=== PATIENT | female | born 2000 | race American Indian/Alaskan Native ===

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

== ENCOUNTER 2021-08-27 14:52 | Observation (INO) | payer MEDICAID ==
[2021-08-27] MEDS ORDERED: DOCUSATE SODIUM 100 MG CAP PO PRN (14:59)
[2021-08-27] MEDS ORDERED: ACETAMINOPHEN 325 MG TAB PO PRN (14:59)
[2021-08-27] MEDS ORDERED: SODIUM CHLORIDE 0.9% 500 ML 500 ML IV ONE (16:00)
--- NOTE | 2021-08-27 18:09 | History and Physical Report ---
History of Present Illness Date of examination: 08/27/21 Date of admission: 08/27/21 17:07 Chief complaint: They sent me to the hospital. History of present illness: 20yo @ 14.3 weeks admitted for blood transfusion for symptomatic anemia (in office H&H 6.6/24.8). Denies vaginal bleeding, abdominal pain, chest pain, heart palpitations and SOB, does endorse intermittent dizziness with position changes and headaches that are unrelieved by Tylenol as well as nausea. Voiding and ambulating without difficulty. Last bowel movement 1 day ago. Intact IV in right A/C at time of assessment. FHTs pending. EDC Confirmation: 02/22/2022 Gestational Age: 14 weeks Past History : 3 Term Births: 1 Premature Births: 0 Living Children: 1 Para: 1 Mult. Births: 0 Prev : 0 Prev. attempt? 0 Aborta: 1 Elect. Ab: 0 Spont. Ab: 1 Ectopics: 0 # 1 Delivery date: 12/21/2016 Weeks Gestation: 39 Delivery type: Vaginal Anesthesia type: epidural Delivery location: [facility] Sex: female weight: 6.88 Comments: teen # 2 Delivery date: 2016 Weeks Gestation: ? Delivery type: SAB Past Medical History: Reviewed and updated today: Anemia Past Surgical History: Reviewed and updated today: negative Family History Summary: Reviewed history and no changes required: 07/15/2021 General Comments - FH: HTN Social History: Reviewed history from 09/14/2016 and no changes required: no e/t/d single Risk Factors: Smoked Tobacco Use: Never smoker Smokeless Tobacco Use: Never Counseled to Quit/Cut Down: yes Passive Smoke Exposure: no HIV High Risk Behavior: no Caffeine Use: 2 drinks per day Exercise: no Seatbelt Use: preg-sexual assault counselor % No Dietary Counseling Reason: pn yes Alcohol Use: yes Type: occ Drug Use: no Past Medical History Anesthesia Complications: negative Anemia: negative Autoimmune Disorder: negative Bleeding Disorder: negative Blood Transfusions: negative Breast Disease: negative Diabetes: negative Heart Disease: negative Hypertension: negative Hepatitis/Liver Disease: negative Kidney Disease/UTI: negative Neurologic/Epilepsy/Migraines: negative Phlebitis/Varicosities: negative Psychiatric: negative Pulmonary Disease/Asthma: negative Thyroid Disease: negative Hospitalizations: negative Surgery (Non-director of in service education): negative Abnormal PAP: negative LAWRENCE Exposure: negative Infertility: negative Uterine Anomaly: negative Uterine Surgery (not C/S): negative Other Gynecologic Problems: negative Social Hx: no e/t/d single Infection History Hx of STD: chlamydia HIV Risk Eval: no Hepatitis B Risk Eval: low risk Personal hx. of genital herpes: no Rash, Viral, or Febrile illness since last LMP? no Varicella/Chicken Pox Status: Unknown TB Risk: no Genetic History Congenital Heart Defect: Mom: no Dad: no Yrder Disease: Mom: no Dad: no Thalassemia Mom: no Dad: no Neural Tube Defect Mom: no Dad: no Down's Syndrome Mom: no Dad: no Nelson-Sachs Mom: no Dad: no Sickle Cell Disease/Trait Mom: no Dad: no Hemophilia Mom: no Dad: no Muscular Dystrophy Mom: no Dad: no Cystic Fibrosis Mom: no Dad: no [place] Chorea Mom: no Dad: no Mental Retardation Mom: no Dad: no Fragile X Mom: no Dad: no Other Genetic/Chromosomal Disorder Mom: no Dad: no Child w/other defect Mom: no Dad: no Enviromental Exposures Enviromental Exposures Reviewed Xray Exposure: no Medication, drug, or alcohol use since LMP: no Chemical/Other Exposure: no Exposure to Cat Liter: no Hx of Parvovirus (Fifth Disease): no Occupational Exposure to Children: none Comments: unempolyed Current Allergies (reviewed today): No known allergies Past History Past Medical History: hematologic disorders (anemia) Past Surgical History: no surgical history Social history: single - Obstetrical History Expected Date of Delivery: 02/22/22 Actual Gestation: 14 Week(s) 3 Day(s) : 3 Para: 1 Hx # Term Pregnancies: 1 Number of Pregnancies: 0 Spontaneous Abortions: 1 Induced : 0 Number of Living Children: 1 Medications and Allergies Allergies Allergy/AdvReac Type Severity Reaction Status Date / Time No Known Allergies Allergy Unverified 12/20/16 19:21 Home Medications Medication Instructions Recorded Confirmed Last Taken Type Ibuprofen [Motrin 800 MG tab] 800 mg PO TID PRN #30 tablet 12/22/16 Unknown Rx Active Meds: Active Medications Acetaminophen (Acetaminophen 325 Mg Tab) 650 mg PO Q4H PRN PRN Reason: Pain MILD(1-3)/Fever >100.5/GARZA Docusate Sodium (Docusate Sodium 100 Mg Cap) 100 mg PO Q12H PRN PRN Reason: Constipation Multivitamins/Iron/Calcium ( [id number] Fumarate-Folic Acid Vit Tab) 1 each PO QDAY VA Review of Systems Constitutional: fatigue, weakness, lethargy, chronic headaches Eyes: normal appearance Ears, nose, mouth and throat: headache, other (dry tongue) Cardiovascular: lightheadedness, dyspnea on exertion Breasts: deferred Gastrointestinal: nausea Genitourinary: deferred Integumentary: dryness - Physical Exam Breasts: Positive: deferred Cardiovascular: Regular rate, Normal S1, Normal S2 Lungs: Positive: Clear to auscultation, Normal air movement Abdomen: Positive: normal appearance, soft, normal bowel sounds Uterus: Positive: normal size Extremities: Positive: normal Results All other labs normal. HBsAg Screen Negative Negative *1 RPR Non Reactive Non Reactive *2 Rubella Antibodies, IgG 5.45 index Immune >0.99 *3 Non-immune <0.90 Equivocal 0.90 - 0.99 Immune >0.99 ABO Grouping A *4 Rh Factor Positive *5 Please note: Prior records for this patient's ABO / Rh type are not available for additional verification. Antibody Screen Negative Negative *6 WBC 7.5 x10E3/uL 3.4-10.8 *7 RBC 4.28 x10E6/uL 3.77-5.28 *8 Microcytes present. Hypochromasia present. Elliptocytes present. [place] cells present. Anisocytosis present. Acanthocytes present. Hemoglobin [LL] 6.6 g/dL 11.1-15.9 *9 Hematocrit [L] 24.8 % 34.0-46.6 *10 MCV [L] 58 fL 79-97 *11 MCH [L] 15.4 pg 26.6-33.0 *12 MCHC [L] 26.6 g/dL 31.5-35.7 *13 RDW [H] 22.0 % 11.7-15.4 *14 Platelets [H] 631 x10E3/uL 150-450 *15 Neutrophils 70 % Not Estab. *16 Lymphs 22 % Not Estab. *17 Monocytes 5 % Not Estab. *18 Eos 2 % Not Estab. *19 Basos 1 % Not Estab. *20 ! Immature Cells <No Reported Value> *21 Neutrophils (Absolute) 5.2 x10E3/uL 1.4-7.0 *22 Lymphs (Absolute) 1.6 x10E3/uL 0.7-3.1 *23 Monocytes(Absolute) 0.4 x10E3/uL 0.1-0.9 *24 Eos (Absolute) 0.2 x10E3/uL 0.0-0.4 *25 Baso (Absolute) 0.1 x10E3/uL 0.0-0.2 *26 ! Immature Granulocytes 0 % Not Estab. *27 ! Immature Grans (Abs) 0.0 x10E3/uL 0.0-0.1 *28 ! NRBC <No Reported Value> *29 Hematology Comments: Note: *30 Verified by microscopic examination. Tests: (4) HB Solu + Rflx Frac ([id number]) Hemoglobin (Hgb) Solubility Negative Negative *44 Tests: (5) HIV Ab/p24 Ag with Reflex ([id number]) HIV Ab/p24 Ag Screen Non Reactive Non Reactive *45 HIV Negative HIV-1/HIV-2 antibodies and HIV-1 p24 antigen were NOT detected. There is no laboratory evidence of HIV infection. Tests: (6) Varicella-Zoster V Ab, IgG ([id number]) ! Varicella Zoster IgG 1102 index Immune >165 *46 Negative <135 Equivocal 135 - 165 Positive >165 A positive result generally indicates exposure to the pathogen or administration of specific immunoglobulins, but it is not indication of active infection or stage of disease. Tests: (7) HCV Antibody reflex to JOHAN ([id number]) HCV Ab <0.1 s/co ratio 0.0-0.9 *47 Tests: (8) Interpretation: ([id number]) ! Interpretation: SPRCS *48 Negative Not infected with HCV, unless recent infection is suspected or other evidence exists to indicate HCV infection. Effective September 28, 2021 HCV Antibody reflex to JOHAN will be made non-orderable. This will affect any Custom Profile that includes [id number] HCV Antibody reflex to JOHAN. [employer] offers order code 372011 HCV Antibody RFX to Quant PCR as an alternative. Assessment and Plan A: 20yo @ 14.3 weeks symptomatic anemia P: Transfuse RBC now, reassess H&H post transfusion and evaluate for need for ad ditional RBCs Monitor VS FHTs q shift Regular diet Encourage ambulation - Patient Problems (1) with 14 completed weeks gestation Current Visit: Yes Status: Acute (2) Anemia affecting Current Visit: Yes Status: Acute
[2021-08-27] MEDS ORDERED: ONDANSETRON 4 MG/2 ML INJ IV PRN (19:00)
[2021-08-27] MEDS ORDERED: SODIUM CHLORIDE 0.9% 500 ML 500 ML IV SCH (20:00)
[2021-08-27 20:24] LABS: Mean Corpuscular HGB Conc 28 % (30-34); Platelet Count 570 K/mm3 (140-440)
[2021-08-27 20:25] LABS: Hematocrit 25.2 % (30.3-42.9); Hemoglobin 7.1 gm/dl (10.1-14.3); Mean Corpuscular Volume 53 fl (79-97)
[2021-08-27 20:26] LABS: Red Cell Distribution Width 21.7 % (13.2-15.2)
[2021-08-27 23:31] LABS: Total Cells Counted 100
[2021-08-27 23:32] LABS: Anisocytosis 1+; Hypochromasia 3+; Poikilocytosis 1+
[2021-08-27 23:33] LABS: Platelet Estimate Consistent w Auto; Tear Drop Cells Few
[2021-08-28 05:40] LABS: Hematocrit 27.6 % (30.3-42.9); Hemoglobin 8.5 gm/dl (10.1-14.3)
--- NOTE | 2021-08-28 08:13 | Discharge Summary ---
Providers - Providers Date of Admission: 08/27/21 17:07 Date of discharge: 08/28/21 Attending physician: CHELA MENDIOLA MD Primary care physician: SALES FINANCIAL ANALYST Hospitalization Reason for admission: other (symptomatic anemia requiring blood transfusion) Delivery: other (n/a - 14.4 weeks at discharge) Procedure: other (blood tranfusion) Episiotomy: none Laceration: none Incision: other (n/a) Other procedures: other (n/a) complications: other (n/a) Discharge diagnosis: other Pertinent studies: Upon entering room, pt resting in bed. Partner at bedside sleeping. Denies vaginal bleeding, abdominal pain, LOF, chest pain, SOB, headaches, dizziness, and NVD. FHTs 160 via bedside doppler. VSS. Continues to ambulate and void without difficulty. Received 1 unit pRBC overnight, H&H with appropriate increase. Reports adequate rest overnight. Requesting IV be removed. Ready to be discharged home. Condition at discharge: Good Disposition: 01 HOME / SELF CARE / HOMELESS - Discharge Diagnoses (1) with 14 completed weeks gestation Status: Acute (2) Anemia affecting Status: Acute Plan - Discharge Medications Prescriptions: Docusate Sodium [Colace] 100 mg PO BID PRN #60 capsule PRN Reason: Constipation Ferrous Sulfate [Feosol 325 MG tab] 325 mg PO BID #60 tablet - Provider Discharge Summary Diet: other (high iron) Instructions: routine Additional instructions: [] Smoking cessation referral if applicable(refer to patient education folder for contact #) [] Refer to [facility]'s [facility] Booklet Call your doctor immediately for: * Fever > 100.5 * Heavy vaginal bleeding ( >1 pad per hour) * Severe persistent headache * Shortness of breath * Reddened, hot, painful area to leg or breast * Drainage or odor from incision. * Keep incision clean and dry at all times and follow doctor's instructions regarding bathing/showering - Follow up plan Follow up: JOVI DUKE MD [Primary Care Provider] - 7 Days CHELA MENDIOLA MD [Staff Physician] - 09/18/21 (Thank you for allowing us to take care of you. Please return to the office for your schedule appointment. We will call you to schedule an appointment with outpatient hematology regarding your anemia. Please take iron two times every day. Take the iron pills with orange juice if possible, and avoid taking the iron with milk, yogurt or other dairy products. Should you have any questions or concerns after discharge from the hospital, please call the My OBGYN office at [phone].)
[2021-08-28] MEDS ORDERED: PRENATAL VIT27-FE FUMARATE-FOLIC ACID VIT TAB PO SCH (10:00)
[2021-08-28 10:43] VITALS: BP 92/60
== END 2021-08-28 10:15 | disposition home or self-care (01) ==
LOC: UNDOADMOB 14:52 → 3A 14:52 → OB 17:07
PROVIDERS: ADMIT Student in an Organized Health Care Education/Training Program; ATTEND Student in an Organized Health Care Education/Training Program
DX: O99.012 Anemia complicating pregnancy, second trimester (principal); D64.9 Anemia, unspecified; Z3A.14 14 weeks gestation of pregnancy
CPT/HCPCS: 36415; 36430; 85014; 85018; 85025; 86850; 86900; 86901; 86920; 96360; 96361; G0378; G0379; J7040; P9016; 85007

== ENCOUNTER 2022-01-05 11:04 | Outpatient (CLI) | payer MEDICAID ==
[2022-01-05 11:43] VITALS: BP 102/56
[2022-01-05 12:14] LABS: Bacteria,Urine 1+ /HPF (Negative); Mucus,Urine 3+ /HPF
[2022-01-05] MEDS ORDERED: LACTATED RINGERS 500 ML IV NR (12:30)
[2022-01-05 12:35] LABS: Bilirubin,Urine Negative (Negative); Blood,Urine Negative (Negative); Color,Urine Amber (Yellow)
== END 2022-01-05 13:10 | disposition home or self-care (01) ==
LOC: TRG 11:04 → APU 11:05 → TRG 13:10
PROVIDERS: ATTEND Obstetrics & Gynecology
DX: O26.893 Other specified pregnancy related conditions, third trimester (principal); R10.9 Unspecified abdominal pain; M54.50 Low back pain, unspecified; R10.2 Pelvic and perineal pain; Z3A.33 33 weeks gestation of pregnancy
CPT/HCPCS: 59025; 81001; 87086

== ENCOUNTER 2022-02-10 16:25 | Outpatient (CLI) | payer MEDICAID ==
[2022-02-10 16:56] VITALS: BP 103/55
[2022-02-10 18:11] LABS: Color,Urine Yellow (Yellow)
[2022-02-10 18:17] LABS: Bacteria,Urine 2+ /HPF (Negative); Calcium Oxalate Crystals,Urine 1+; Mucus,Urine 3+ /HPF
== END 2022-02-10 18:37 | disposition home or self-care (01) ==
LOC: TRG 16:25 → APU 16:29 → TRG 18:37
PROVIDERS: ATTEND Obstetrics & Gynecology
DX: O26.893 Other specified pregnancy related conditions, third trimester (principal); R10.2 Pelvic and perineal pain; M54.50 Low back pain, unspecified; Z3A.38 38 weeks gestation of pregnancy
CPT/HCPCS: 36415; 59025; 81001; 84112

== ENCOUNTER 2022-02-11 11:30 | Outpatient (CLI) | payer MEDICAID ==
[2022-02-11 11:51] VITALS: BP 113/55
== END 2022-02-11 16:15 | disposition home or self-care (01) ==
LOC: TRG 11:30 → APU 11:31 → TRG 16:15
PROVIDERS: ATTEND Obstetrics & Gynecology
DX: O46.93 Antepartum hemorrhage, unspecified, third trimester (principal); Z3A.38 38 weeks gestation of pregnancy
CPT/HCPCS: 59025; Q0177

== ENCOUNTER 2022-02-12 10:56 | Inpatient (IN) | payer MEDICAID ==
--- NOTE | 2022-02-12 11:32 | History and Physical Report ---
History of Present Illness Date of examination: 02/12/22 Chief complaint: contractions and vaginal bleeding @ 38+ weeks History of present illness: EDC Confirmation: 02/22/2022 Past History : 3 Term Births: 1 Premature Births: 0 Living Children: 1 Para: 1 Mult. Births: 0 Prev : 0 Prev. attempt? 0 Aborta: 1 Elect. Ab: 0 Spont. Ab: 1 Ectopics: 0 # 1 Delivery date: 12/21/2016 Weeks Gestation: 39 Delivery type: Vaginal Anesthesia type: epidural Delivery location: [facility] Sex: female weight: 6.88 Comments: teen # 2 Delivery date: 2016 Weeks Gestation: ? Delivery type: SAB Past Medical History: Reviewed and updated today: Anemia Past Surgical History: Reviewed and updated today: negative Family History Summary: Reviewed history and no changes required: 07/15/2021 General Comments - FH: HTN Social History: Reviewed history from 09/14/2016 and no changes required: no e/t/d single Risk Factors: Smoked Tobacco Use: Never smoker Smokeless Tobacco Use: Never Counseled to Quit/Cut Down: yes Passive Smoke Exposure: no HIV High Risk Behavior: no Caffeine Use: 2 drinks per day Exercise: no Seatbelt Use: preg-vocational counselor % No Dietary Counseling Reason: pn yes Alcohol Use: yes Type: occ Drug Use: no Past Medical History Anesthesia Complications: negative Anemia: negative Autoimmune Disorder: negative Bleeding Disorder: negative Blood Transfusions: negative Breast Disease: negative Diabetes: negative Heart Disease: negative Hypertension: negative Hepatitis/Liver Disease: negative Kidney Disease/UTI: negative Neurologic/Epilepsy/Migraines: negative Phlebitis/Varicosities: negative Psychiatric: negative Pulmonary Disease/Asthma: negative Thyroid Disease: negative Hospitalizations: negative Surgery (Non-factory worker): negative Abnormal PAP: negative LAWRENCE Exposure: negative Infertility: negative Uterine Anomaly: negative Uterine Surgery (not C/S): negative Other Gynecologic Problems: negative Social Hx: no e/t/d single Infection History Hx of STD: chlamydia HIV Risk Eval: no Hepatitis B Risk Eval: low risk Personal hx. of genital herpes: no Rash, Viral, or Febrile illness since last LMP? no Varicella/Chicken Pox Status: Unknown TB Risk: no Genetic History Congenital Heart Defect: Mom: no Dad: no Ryder Disease: Mom: no Dad: no Thalassemia Mom: no Dad: no Neural Tube Defect Mom: no Dad: no Down's Syndrome Mom: no Dad: no Nelson-Sachs Mom: no Dad: no Sickle Cell Disease/Trait Mom: no Dad: no Hemophilia Mom: no Dad: no Muscular Dystrophy Mom: no Dad: no Cystic Fibrosis Mom: no Dad: no [place] Chorea Mom: no Dad: no Mental Retardation Mom: no Dad: no Fragile X Mom: no Dad: no Other Genetic/Chromosomal Disorder Mom: no Dad: no Child w/other defect Mom: no Dad: no Enviromental Exposures Enviromental Exposures Reviewed Xray Exposure: no Medication, drug, or alcohol use since LMP: no Chemical/Other Exposure: no Exposure to Cat Liter: no Hx of Parvovirus (Fifth Disease): no Occupational Exposure to Children: none Comments: unempolyed Current Allergies (reviewed today): No known allergies Past History Past Medical History: other (see HPI) Past Surgical History: other (see HPI) MINER PICK History: other (see HPI) Family/Genetic History: other (see HPI) - Obstetrical History Expected Date of Delivery: 02/22/22 Actual Gestation: 38 Week(s) 4 Day(s) : 3 Para: 1 Hx # Term Pregnancies: 1 Number of Pregnancies: 0 Spontaneous Abortions: 1 Induced : 0 Number of Living Children: 1 Medications and Allergies Allergies Allergy/AdvReac Type Severity Reaction Status Date / Time No Known Allergies Allergy Verified 02/10/22 16:35 Home Medications Medication Instructions Recorded Confirmed Last Taken Type Ibuprofen [Motrin 800 MG tab] 800 mg PO TID PRN #30 tablet 12/22/16 08/27/21 Unk nown Rx Docusate Sodium [Colace] 100 mg PO BID PRN #60 capsule 08/28/21 Unknown Rx Ferrous Sulfate [Feosol 325 MG tab] 325 mg PO BID #60 tablet 08/28/21 Unknown Rx Review of Systems All systems: negative - Physical Exam Breasts: Positive: normal Cardiovascular: Regular rate Lungs: Positive: Normal air movement Abdomen: Positive: normal appearance, soft Genitourinary (Female): Positive: normal external genitalia, normal perenium Vulva: both: normal Vagina: Positive: normal moisture Uterus: Positive: normal size, normal contour Anus/Rectum: Positive: normal perianal skin Extremities: Positive: normal Deep Tendon Reflex Grade: Normal +2 - Obstetrical FHR: auscultation normal Uterine Contraction Monitor Mode: External Cervical Dilatation: 3 (moderate amount of dark red blood noted) Cervical Effacement Percentage: 70 station: -1 Uterine Contraction Pattern: Regular Uterine Tone Measurement Phase: Contraction Uterine Contraction Intensity: Moderate Results Result Diagrams: 02/12/22 11:35 All other labs normal. Assessment and Plan pt presented to office @ 38+4 week with c/o vaginal bleeding x 3 days and contractions q3-5minutes. Vaginal bleeding noted on peripad and during vag exam dark red. It does not appear that patient is SROM'd. Abd palpated soft between ctx, pt reports + FM. Suspect labor and rapid cervical change is cause of vaginal bleeding but will monitor carefully for s/s abruption. - Patient Problems (1) Trichomonal vaginitis Current Visit: Yes Status: Acute Plan to address problem: tx'd @ 35weeks SUJATA collected today (2) Vaginal bleeding in Current Visit: Yes Status: Acute Plan to address problem: will get u/s to r/o abruption (3) 38 weeks gestation of Current Visit: Yes Status: Acute (4) Anemia affecting Current Visit: Yes Status: Acute Qualifiers: Trimester: third trimester Qualified Code(s): O99.013 - Anemia complicating , third trimester (5) Group B Streptococcus carrier state affecting Current Visit: Yes Status: Acute Plan to address problem: Amp q4hrs until delivery
[2022-02-12] MEDS ORDERED: LACTATED RINGERS 1,000 ML IV SCH (12:00)
[2022-02-12] MEDS ORDERED: ONDANSETRON 4 MG/2 ML INJ IV PRN ×2 (12:00→20:36)
[2022-02-12] MEDS ORDERED: LIDOCAINE (2%) 20 MG/1 ML VIAL 20 ML MDV INFILTRATI NR (12:00)
[2022-02-12] MEDS ORDERED: ePHEDrine SULFATE 50 MG/1 ML INJ IV PRN ×2 (12:00→15:00)
[2022-02-12] MEDS ORDERED: fentaNYL 100 MCG/2 ML INJ IV PRN (12:00)
[2022-02-12] MEDS ORDERED: LOPERAMIDE 2 MG CAP PO NR (12:00)
[2022-02-12] MEDS ORDERED: TERBUTALINE 1 MG/1 ML INJ SUB-Q NR (12:00)
[2022-02-12] MEDS ORDERED: ACETAMINOPHEN 325 MG TAB PO PRN ×2 (12:00→20:36)
[2022-02-12] MEDS ORDERED: AMPICILLIN/NS 2 GM/100 ML 2 GM/100 ML BAG IV NR (12:00)
[2022-02-12] MEDS ORDERED: OXYTOCIN 10 UNIT/1 ML INJ IM NR (12:00)
[2022-02-12] MEDS ORDERED: CARBOPROST TROMETHAMINE 250 MCG/1 ML INJ IM NR (12:00)
[2022-02-12] MEDS ORDERED: OXYTOCIN DRIP 30 UNITS/500 ML BAG IV SCH ×2 (12:00)
[2022-02-12] MEDS ORDERED: METHYLERGONOVINE MALEATE 0.2 MG/ML VIAL IM NR (12:00)
[2022-02-12] MEDS ORDERED: BUTORPHANOL 2 MG/1 ML INJ IV PRN (12:00)
[2022-02-12] MEDS ORDERED: miSOPROStol 200 MCG TAB PR NR (12:00)
[2022-02-12] MEDS ORDERED: PROMETHAZINE 25 MG TAB PO PRN ×2 (12:00→20:36)
--- NOTE | 2022-02-12 13:25 | Event Note ---
Date: 02/12/22 SVE now /-1, normal bloody show present. FHT CAT 1, abdomen palpated soft between ctx, moderate with ctx. no abdominal tenderness noted during palpation between ctx. IVF bolus in progress for epidural.
[2022-02-12 13:27] LABS: Hematocrit 29.8 % (30.3-42.9); Hemoglobin 9.2 gm/dl (10.1-14.3); Mean Corpuscular HGB Conc 31 % (30-34); Mean Corpuscular Volume 60 fl (79-97); Red Blood Count 5.01 M/mm3 (3.65-5.03)
[2022-02-12 13:28] LABS: Platelet Count 429 K/mm3 (140-440); Red Cell Distribution Width 20.8 % (13.2-15.2)
--- NOTE | 2022-02-12 14:33 | Anesthesia Consultation ---
Anesthesia Consult and Med Hx Date of service: 02/12/22 - Airway Anesthetic Teeth Evaluation: Good ROM Head & Neck: Adequate Mental/Hyoid Distance: Adequate Mallampati Class: Class II Intubation Access Assessment: Probably Good - Pulmonary Exam CTA: Yes - Cardiac Exam Cardiac Exam: RRR - Pre-Operative Health Status ASA Pre-Surgery Classification: ASA2 Proposed Anesthetic Plan: Epidural - Pulmonary Hx Smoking: No Hx Asthma: Yes Hx Respiratory Symptoms: No SOB: No COPD: No Home Oxygen Therapy: No Hx Pneumonia: No Hx Sleep Apnea: No - Cardiovascular System Hx Hypertension: No Hx Coronary Artery Disease: No Hx Heart Attack/AMI: No Hx Angina: No Hx Percutaneous Transluminal Coronary Angioplasty (PTCA): No Hx Cardia Arrhythmia: No Hx Pacemaker: No Hx Internal Defibrillator: No Hx Valvular Heart Disease: No Hx Heart Murmur: No Hx Peripheral Vascular Disease: No - Central Nervous System Hx Neuromuscular Disorder: No Hx Seizures: No CVA: No Hx Back Pain: No Hx Psychiatric Problems: No - Gastrointestinal Hx Ulcer: No Hx Gastroesophageal Reflux Disease: No - Endocrine Hx Renal Disease: No Hx End Stage Renal Disease: No Hx Cirrhosis: No Hx Liver Disease: No Hx Insulin Dependent Diabetes: No Hx Non-Insulin Dependent Diabetes: No Hx Thyroid Disease: No Hx Hypothyroidism: No Hx Hyperthyroidism: No - Hematic Hx Anemia: No Hx Sickle Cell Disease: No - Other Systems Hx Alcohol Use: No Hx Substance Use: No Hx Cancer: No Hx Obesity: No
--- NOTE | 2022-02-12 14:34 | Progress Note ---
Labor Epidural - Labor Epidural Start Time: 14:12 Stop Time: 14:16 Performed by:: AMADA CANNON Procedure: Epidural Requested for Labor Pain. H&P and PT Chart reviewed and consent obtained. Time out performed and the procedure was explained, all questions answered. Patient was placed in a sitting position with monitors applied. The PTs back was prepped and draped in usual sterile fashion. The Skin was localized with 3 mL of 1% lidocaine at L3-L4. A 17-gauge Touhy epidural needle was advanced to KETTY with saline at 7 cm and no blood/CSF was noted via epidural needle. Epidural catheter was advanced to 12 cm. There was negative aspiration for blood and CSF in the catheter and negative response to a test dose of 3 ml 1.5% lidocaine w/ Epi and a sterile dressing was applied Patient tolerated the procedure well and there were no immediate complications noted.
--- NOTE | 2022-02-12 14:34 | Anesthesia Day of Surgery ---
Anesthesia Day of Surgery - Day of Surgery Patient Examined: Yes Patient H&P Reviewed: Yes Patient is NPO: Yes Beta Blockers: No Cardiac Clearance: No Pulmonary Clearance: No Santosh's Test: N/A
[2022-02-12] MEDS ORDERED: NALOXONE 0.4 MG/1 ML INJ IV PRN (15:00)
[2022-02-12] MEDS ORDERED: fentaNYL-BUPIV 2 MCG/ML-0.125% 200 MCG/100 ML BAG EPIDURAL SCH (15:00)
--- NOTE | 2022-02-12 15:13 | Procedure Note ---
OB Delivery Note - Delivery Date of Delivery: 02/12/22 Vest Presser: DINA JAMES Estimated blood loss: 300cc - Vaginal Delivery presentation: vertex Delivery position: OA Intrapartum events: meconium, bleeding site-undetermine Delivery induction: none Delivery monitor: external FHT, external uterine Route of delivery: Delivery placenta: spontaneous Delivery cord: 3 umbilical vessels Episiotomy: none Delivery laceration: none Anesthesia: epidural Delivery comments: Male infant born encaul, mec fluid noted. Approx 200 ml of blood when baby de livered, placenta delivered quickly after baby, clots noted on 1/3 of edge of placenta. Placenta to pathology d/t suspected abruption. Baby crying and vigorus, placed skin to skin on mother's abdomen. 3 vessel cord clamped and cut. no lacerations to repair. all counts correct. approx 100ml of blood after delivery of placenta. Mother and infant LDR stable. - A at 1 minute: 8 at 5 minutes: 9 Gender: Male (5#12oz)
[2022-02-12] MEDS ORDERED: AMPICILLIN/NS 1 GM/50 ML 1 GM/50 ML BAG IV SCH (16:00)
--- NOTE | 2022-02-12 17:41 | Post Anesthesia Evaluation ---
- Post Anesthesia Evaluation Patient Participated: Yes Airway Patent: Yes Stable Respiratory Function: Yes Nausea/Vomiting: No Temp > 96.8F: Yes Pain Manageable: Yes Adequeate Hydration: Yes Anesthesia Complications: No Block Receding Appropriately: Yes Patient on Ventilator: No
[2022-02-12] MEDS ORDERED: LANOLIN/ZINC/DIMETHICONE (LANSINOH) 7 GM TP PRN (20:36)
[2022-02-12] MEDS ORDERED: WITCH HAZEL/ GLYCERIN PAD TP PRN (20:36)
[2022-02-12] MEDS ORDERED: MAGNESIUM HYDROXIDE (MOM) ORAL LIQD UDC PO PRN (20:36)
[2022-02-12] MEDS ORDERED: BENZOCAINE/MENTHOL 20/0.5% TOP SPRAY 56 GM TP PRN (20:36)
[2022-02-12] MEDS ORDERED: diphenhydrAMINE 25 MG CAP PO PRN (20:36)
[2022-02-12] MEDS: FERROUS SULFATE 325 MG TAB PO SCH (20:45)
[2022-02-12] MEDS: IBUPROFEN 800 MG TAB PO SCH (21:13)
[2022-02-12] MEDS: DOCUSATE SODIUM 100 MG CAP PO SCH (21:13)
[2022-02-12] MEDS ORDERED: MINERAL OIL 30 ML ORAL LIQD PO PRN (22:00)
[2022-02-13 03:47] LABS: Hematocrit 22.8 % (30.3-42.9); Hemoglobin 6.9 gm/dl (10.1-14.3)
[2022-02-13] MEDS: IBUPROFEN 800 MG TAB PO SCH ×3 (05:15→16:52)
[2022-02-13] MEDS: DOCUSATE SODIUM 100 MG CAP PO SCH ×2 (09:34→22:59)
[2022-02-13] MEDS: FERROUS SULFATE 325 MG TAB PO SCH ×2 (09:35→22:59)
[2022-02-13] MEDS ORDERED: PRENATAL VIT27-FE FUMARATE-FOLIC ACID VIT TAB PO SCH (10:00)
[2022-02-14] MEDS: IBUPROFEN 800 MG TAB PO SCH ×2 (01:05→05:55)
[2022-02-14 08:22] LABS: Hematocrit 24.9 % (30.3-42.9); Hemoglobin 7.7 gm/dl (10.1-14.3)
--- NOTE | 2022-02-14 08:43 | Discharge Summary ---
Providers - Providers Date of Admission: 02/12/22 11:26 Date of discharge: 02/14/22 Attending physician: CHETAN IVERSON 02/12/22 20:36 Consult to District Plant Engineer [CONS] Routine Reason For Exam: assistance with , SNS Primary care physician: CHETAN IVERSON Hospitalization Reason for admission: active labor Delivery: Episiotomy: none Laceration: none complications: none Discharge diagnosis: IUP at term delivered [place] baby: male Hospital course: Breasts: Present: normal. Absent: swelling, mass, pain, engorged Cardiovascular: Present: Regular rate Lungs: Present: Normal air movement Abdomen: Present: normal appearance, soft. Absent: distention, tenderness, guarding Uterus: Present: fundal height below umbilicus. Absent: tenderness Extremities: Present: normal. Absent: tenderness Condition at discharge: Good Disposition: 01 HOME / SELF CARE / HOMELESS - Discharge Diagnoses (1) Anemia affecting Status: Acute Qualifiers: Trimester: third trimester Qualified Code(s): O99.013 - Anemia complicating , third trimester Comment: stable (2) Single live Status: Acute (3) Spontaneous vaginal delivery Status: Acute Comment: rto 4 weeks for care Plan - Discharge Medications Prescriptions: Docusate Sodium [Colace CAP] 100 mg PO BID PRN #30 capsule PRN Reason: Constipation Lidocain2.5%/Prilocai2.5% [Emla] 5 gm TP ONCE #1 tube Ferrous Sulfate [Feosol 325 MG tab] 325 mg PO TID #90 tablet - Provider Discharge Summary Activity: no sex for 6 weeks, no heavy lifting 4 weeks, no strenuous exercise Diet: routine Instructions: routine Additional instructions: [] Smoking cessation referral if applicable(refer to patient education folder for contact #) [] Refer to [facility]'s [facility] Booklet Call your doctor immediately for: * Fever > 100.5 * Heavy vaginal bleeding ( >1 pad per hour) * Severe persistent headache * Shortness of breath * Reddened, hot, painful area to leg or breast * Drainage or odor from incision. * Keep incision clean and dry at all times and follow doctor's instructions re garding bathing/showering Call office to make an appointment for your son's circumcision if desired - Follow up plan Follow up: CHETAN IVERSON MD [Primary Care Provider] - (4weeks)
[2022-02-14 10:09] VITALS: BP 115/66
== END 2022-02-14 14:20 | disposition home or self-care (01) | DRG 774 ==
LOC: TRG 10:56 → APU 10:58 → TRG 12:08 → LD 12:32 → OB 18:30
PROVIDERS: ADMIT Obstetrics & Gynecology; ATTEND Obstetrics & Gynecology
PROC: 10E0XZZ Delivery of Products of Conception, External Approach (ICD-10-PCS; principal; 2022-02-12)
PROC: 3E0R3BZ Introduction of Anesthetic Agent into Spinal Canal, Percutaneous Approach (ICD-10-PCS; 2022-02-12)
PROC: 00HU33Z Insertion of Infusion Device into Spinal Canal, Percutaneous Approach (ICD-10-PCS; 2022-02-12)
DX: O77.0 Labor and delivery complicated by meconium in amniotic fluid (principal); O98.32 Other infections with a predominantly sexual mode of transmission complicating childbirth; Z20.822 Contact with and (suspected) exposure to COVID-19; O99.824 Streptococcus B carrier state complicating childbirth; Z37.0 Single live birth; Z3A.38 38 weeks gestation of pregnancy; O99.02 Anemia complicating childbirth; A59.01 Trichomonal vulvovaginitis; O99.52 Diseases of the respiratory system complicating childbirth; J45.909 Unspecified asthma, uncomplicated
CPT/HCPCS: 36415; 85014; 85018; 85027; 86592; 86850; 86900; 86901; 88307; 96360; G0378; J0290; J7120; U0003